=== PATIENT | male | born 2000 | race Caucasian/White ===

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

== ENCOUNTER 2020-08-23 08:08 | Emergency (ER) | payer SELFPAY ==
[2020-08-23 08:17] VITALS: BP 135/60
--- NOTE | 2020-08-23 14:05 | ER Document Report ---
Entered by SUSIE DOLL SCRIBE 08/23/20 0954 Acting as scribe for:HIMANSHU RIOS MD ED General - General Chief Complaint: Headache Stated Complaint: COUGH Time Seen by Provider: 08/23/20 09:50 Mode of Arrival: Ambulatory Information source: Patient Notes: This 19 year old male patient presents to the ED today with complaints of occipital headache for the past x3 weeks after hitting his head on a glass table. Patient states it feels like a "parham is squeezing my head" and describes the pain as a pressure that is intermittently sharp with certain head movements. He reports associated neck pain, nausea that "comes in waves in the morning," and vomiting. Denies syncope. TRAVEL OUTSIDE OF THE [place] IN LAST 30 DAYS: No - Related Data Allergies/Adverse Reactions: No Known Allergies Allergy (Verified 12/11/18 19:09) Past Medical History - General Information source: Patient, [facility] Records - Social History Smoking Status: Never Smoker Cigarette use (# per day): No Chew tobacco use (# tins/day): No Smoking Education Provided: No Frequency of alcohol use: None Drug Abuse: None Family History: Reviewed & Not Pertinent Patient has suicidal ideation: No Patient has homicidal ideation: No Musculoskeletal Medical History: Reports Hx Musculoskeletal Deformity, Reports Hx Musculoskeletal Trauma Past Surgical History: Reports: Hx Inguinal Hernia - Immunizations Immunizations up to date: Yes Review of Systems - Review of Systems Constitutional: No symptoms reported EENT: No symptoms reported Cardiovascular: See HPI. denies: Syncope Respiratory: No symptoms reported Gastrointestinal: See HPI, Nausea, Vomiting Genitourinary: No symptoms reported Male Genitourinary: No symptoms reported Musculoskeletal: See HPI, Muscle pain, Neck pain Skin: No symptoms reported Hematologic/Lymphatic: No symptoms reported Neurological/Psychological: See HPI, Headaches -: Yes All other systems reviewed and negative Physical Exam - Vital signs Vitals: Temp Pulse Resp BP Pulse Ox 98.2 F 57 L 18 135/60 H 100 08/23/20 08:16 08/23/20 08:16 08/23/20 08:16 08/23/20 08:16 08/23/20 08:16 - General General appearance: Alert In distress: None - HEENT Head: Normocephalic, Atraumatic, Tenderness - Tenderness to palpation of occipital musculature Neck: Other - Tenderness to palpation of posterior cervical musculature - Respiratory Respiratory status: No respiratory distress Chest status: Nontender Breath sounds: Normal Chest palpation: Normal - Cardiovascular Rhythm: Regular Heart sounds: Normal auscultation Murmur: No Friction rub: No Gallop: None auscultated - Abdominal Inspection: Normal Distension: No distension Bowel sounds: Normal Tenderness: Nontender - Abdomen soft Organomegaly: No organomegaly - Back Back: Tender - Tenderness to palpation of bilateal trapezius musculature - Extremities General upper extremity: Normal inspection General lower extremity: Normal inspection. No: Edema - Neurological Neuro grossly intact: Yes Orientation: AAOx4 [place] Coma Scale Eye Opening: Spontaneous [place] Coma Scale Verbal: Oriented Julio Coma Scale Motor: Obeys Commands Julio Coma Scale Total: 15 - Psychological Associated symptoms: Normal affect, Normal mood - Skin Skin Temperature: Warm Skin Moisture: Dry Skin Color: Normal Course - Vital Signs Vital signs: Temp Pulse Resp BP Pulse Ox 98.2 F 57 L 18 135/60 H 100 08/23/20 08:16 08/23/20 08:16 08/23/20 08:16 08/23/20 08:16 08/23/20 08:16 Discharge - Discharge Clinical Impression: Muscle contraction headache syndrome Condition: Stable Disposition: HOME, SELF-CARE Additional Instructions: Tension Headache/Muscle Contraction Headache Your problem has been diagnosed as muscle tension headache. This very common type of headache occurs because of tightness in the muscles of the head and neck. The cause may be neck or jaw joint problems, but most commonly the cause is emotional stress. The headache may last hours or days. The treatment of uncomplicated tension headaches is rest and pain medication. Often, the newer antiinflammatory pain medications are prescribed, as these also decrease the irritability of the painful tissues. Muscle relaxers, cold packs, or warm packs are sometimes helpful. Anti-anxiety medication or narcotics are sometimes needed temporarily, but are best avoided in the long run. Your doctor has evaluated your headache problem, and finds no evidence of a serious health problem as a cause for the headache. If your headache becomes more severe, or if new symptoms develop (such as fever, stiff neck, vomiting, or decreasing alertness) you should be re-examined by the physician. Take the medications as prescribed for neck muscle tension. Take ibuprofen 600 mg every 8 hours for the next several days. Take 2 extra strength Tylenol every 4-6 hours for the next several days. Try having a family member massage the muscles in your shoulders and neck in the evening after work. Follow-up with a local primary care provider if not improving. RETURN TO THE EMERGENCY ROOM IF ANY NEW OR WORSENING SYMPTOMS. Prescriptions: Cyclobenzaprine HCl 5 mg PO Q8 PRN #15 tablet PRN Reason: Forms: Return to Work I personally performed the services described in the documentation, reviewed and edited the documentation which was dictated to the scribe in my presence, and it accurately records my words and actions.
== END 2020-08-23 10:55 | disposition home or self-care (01) ==
LOC: ER 08:08
DX: G44.89 Other headache syndrome (principal); M54.2 Cervicalgia; R11.2 Nausea with vomiting, unspecified; M79.10 Myalgia, unspecified site
CPT/HCPCS: 99283